=== PATIENT | male | born 1980 | race Caucasian/White ===

== ENCOUNTER 2016-06-26 14:02 | Emergency (ER) | payer OTHER ==
[2016-06-26 14:09] VITALS: TEMP 98.4
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
[2016-06-26] MEDS ORDERED: KETOROLAC 30 MG/1 ML SDV IM ONE (14:28)
[2016-06-26 17:39] VITALS: BP 119/74; PULSE 68; RESP 14; O2SAT 96
== END 2016-06-26 17:39 | disposition home or self-care (01) ==
DX: S20.91XA Abrasion of unspecified parts of thorax, initial encounter (principal); S40.211A Abrasion of right shoulder, initial encounter; F17.200 Nicotine dependence, unspecified, uncomplicated; Y04.8XXA Assault by other bodily force, initial encounter; Y92.89 Other specified places as the place of occurrence of the external cause
CPT/HCPCS: J1885